=== PATIENT | male | born 1950 | race Caucasian/White ===

== ENCOUNTER → 2019-03-10 | Outpatient (CLI) | payer BC ==
--- NOTE | 2019-03-10 15:31 | RADIOLOGY IMAGING REPORT ---
FACILITY: [facility] [place] PATIENT NAME: Lopez Herron : 1950 MR: [id number] V: [id number] EXAM DATE: ORDERING PHYSICIAN: GUNNAR ZHANG TECHNOLOGIST: Location: [facility] Patient: Lopez Herron : 1950 Visit/Account:[id number] Date of Sevice: 03/10/2019 Exam type: CHEST PA AND LAT History: Shortness of breath, fatigue, history of 35+ year smoking Comparison: December 09, 2016. Findings: The lungs are free of acute effusions, infiltrates or edema. Cardiac silhouette is normal in size. There are mild spondylotic changes of the thoracic spine. IMPRESSION: 1. No acute cardiopulmonary process is seen Report Dictated By: Kat Larsen MD at 03/10/2019 3:21 PM Report E-Signed By: Kat Larsen MD at 03/10/2019 3:22 PM WSN:[email or web address]
== END ==
LOC: RAD 13:33
PROVIDERS: ATTEND Nurse Practitioner Family
DX: R06.02 Shortness of breath (principal); R53.83 Other fatigue; Z87.891 Personal history of nicotine dependence
CPT/HCPCS: 71046

== ENCOUNTER → 2019-03-18 | Outpatient (CLI) | payer BC | LOC: RESP 04:06 | PROVIDERS: ATTEND Nurse Practitioner Family | DX: R06.02 Shortness of breath (principal); Z87.891 Personal history of nicotine dependence | CPT/HCPCS: 94060; 94726; 94729 ==